=== PATIENT | male | born 1980 | race Two or more races ===

== ENCOUNTER 2020-09-27 00:29 | Emergency (ER) | payer OTHER ==
[~2020-09-27] VITALS: Ht 177.8 cm; Wt 81.6 kg
--- NOTE | 2020-09-27 00:35 | NUR ---
pt bibself c/o midsternal pain s/p doing cocaine x2 days ago. Pt breathing evenly and unlabored. Pt states "i thought i was given cocaine, but it was actually speed. I went for a walk and felt dizzy with chest pressure today" Pt attached to monitor and pox, changed into gown. Skin is warm, dry, and intact. Pt given blanket and call light within reach.
--- NOTE | 2020-09-27 01:10 | NUR ---
LAB AT BEDSIDE
[2020-09-27 01:17] LABS: BASOPHILS # (AUTO) 0.1 /CMM (0.0-0.2); BASOPHILS % (AUTO) 1.3 % (0.0-2.0); EOSINOPHILS % (AUTO) 2.4 % (0.0-6.0); HEMATOCRIT 43 % (39-51); HEMOGLOBIN 14.8 g/dL (13.5-17.5); LYMPHOCYTES # (AUTO) 1.9 /CMM (0.8-4.8); LYMPHOCYTES % (AUTO) 35.3 % (20.0-44.0); MEAN CORPUSCULAR HGB CONC 35 g/dl (31.0-36.0); MEAN CORPUSCULAR VOLUME 89 fL (80-96); MONOCYTES # (AUTO) 0.7 /CMM (0.1-1.30); NEUTROPHILS # (AUTO) 2.6 /CMM (1.8-8.9); PLATELET COUNT (AUTO) 268 /CMM (150-450); RED BLOOD CELL COUNT(AUTO) 4.81 MIL/uL (4.5-6.0); WHITE BLOOD COUNT (AUTO) 5.4 K/uL (4.3-11.0)
--- NOTE | 2020-09-27 01:21 | NUR ---
XRAY AT BEDSIDE
[2020-09-27 01:59] LABS: CALCIUM, SERUM 9.4 mg/dL (8.5-10.1); CARBON DIOXIDE 28 mmol/L (21-32); CHLORIDE 102 mmol/L (98-107); CREATININE 1.1 mg/dL (0.6-1.3); GLUCOSE 108 mg/dL (74-106); POTASSIUM 4.1 mmol/L (3.5-5.1); SODIUM SERUM 139 mmol/L (136-145); UREA NITROGEN, BLOOD 27 mg/dL (7-18)
--- NOTE | 2020-09-27 02:13 | NUR ---
Patient discharged to home in stable condition. Written and verbal after care instructions given. Patient verbalizes understanding of instruction.PT ambulatory with a steady gait
[2020-09-27 02:16] VITALS: BP 129/78
== END 2020-09-27 02:13 | disposition home or self-care (01) ==
LOC: ER 00:31
DX: F15.90 Other stimulant use, unspecified, uncomplicated (principal)
CPT/HCPCS: 36415; 71045-TC; 80048-TC; 84484-TC; 85025-TC